=== PATIENT | male | born 2000 | race Caucasian/White ===

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

== ENCOUNTER 2021-05-26 12:04 | Emergency (ER) | payer MEDICAID ==
[~2021-05-26 12:04] MED LIST changes: +HYDROXYZINE HCL25 M2 PO; +PREDNISONE 10 M10 M1 PO
== END 2021-05-26 12:32 | disposition left against medical advice (07) ==
LOC: M.ERS 12:04
DX: M54.2 Cervicalgia (principal); Z53.21 Procedure and treatment not carried out due to patient leaving prior to being seen by health care provider